=== PATIENT | female | born 1955 | race Caucasian/White ===

== ENCOUNTER 2018-06-28 08:47 | Emergency (ER) | payer BC, OTHER ==
[~2018-06-28] VITALS: Ht 175.3 cm; Wt 115.0 kg
[~2018-06-28 08:47] MED LIST: NALT1TAB14 PO
[2018-06-28 08:50] VITALS: TEMP 36.8; Ht 175.3 cm; Wt 115.0 kg
[2018-06-28] MEDS ORDERED: KETOROLAC TROMETHAMINE 30 MG/ML VIAL IV STA (09:03)
[2018-06-28] MEDS ORDERED: SODIUM CHLORIDE 0.9% 500ML 500 ML IV STA (09:03)
[2018-06-28] MEDS ORDERED: MoRPHine SULFATE 4 MG/ML 1 ML CARP\\VIAL IV STA (09:03)
[2018-06-28] MEDS ORDERED: ONDANSETRON INJ 2 MG/ML 2 ML VIAL IV STA (09:03)
[2018-06-28 09:30] LABS: BASO % 0.5 %; BASO ABS # 0.04 K/uL (0-0.2); EOS % 2.6 %; EOS ABS # 0.23 K/uL (0-0.5); HEMATOCRIT 43.9 % (37-47); IG# 0.06 K/uL (0.00-0.02); LYMPH % 31.9 %; LYMPH ABS # 2.77 K/uL (1.2-3.4); MEAN CELL VOLUME 92.8 fL (80-100); MEAN CORPUSCULAR HEMOGLOBIN 31.7 pg (25-34); MEAN CORPUSCULAR HGB CONC 34.2 g/dl (32-36); MEAN PLATELET VOLUME 9.3 fL (7.4-10.4); MONO % 7.4 %; MONO ABS # 0.64 K/uL (0.11-0.59); NEUT % 56.9 %; NEUT ABS # 4.94 K/uL (1.4-6.5); PLATELET COUNT 346 K/uL (130-400); RED CELL DISTRIBUTION WIDTH CV 13.2 % (11.5-14.5); WHITE BLOOD COUNT 8.68 K/uL (4.8-10.8)
[2018-06-28 09:40] LABS: CALCIUM 9.2 mg/dl (8.5-10.1); CREATININE 0.9 mg/dl (0.60-1.20)
--- NOTE | 2018-06-28 10:11 | DIAGNOSTIC IMAGING REPORT ---
L-SPINE MIN 4 VIEWS ROUTINE HISTORY: 63 years-old Female LBP acute on chronic low back pain without reported trauma. COMPARISON: None available TECHNIQUE: 5 views of the lumbar spine FINDINGS: There are 5 nonrib-bearing lumbar type vertebral segments present. No spondylolysis or spondylolisthesis. Moderate intervertebral disc space narrowing with spondylitic spurring at L5-S1. At least mild facet arthrosis is seen at L4-L5 and L5-S1. No acute fracture or subluxation. Surgical clips of the right upper quadrant abdomen suggest prior cholecystectomy. Clips of the pelvis suggest prior tubo-ovarian occlusion. Pelvic basin calcifications suggest probable phleboliths. IMPRESSION: 1. No acute fracture or subluxation. 2. Moderate intervertebral disc space narrowing at L5-S1 with spondylitic spurring and facet arthrosis. The above report was generated using voice recognition software. It may contain grammatical, syntax or spelling errors. Electronically signed by: Miguel Nunes M.D. 06/28/2018 10:10 AM Dictated Date/Time: 06/28/2018 10:08 AM
[2018-06-28] MEDS ORDERED: WLLXL300 PO (10:40)
[2018-06-28] MEDS ORDERED: OXYC-90 PO (11:38)
[2018-06-28 12:10] VITALS: BP 136/79; PULSE 78; O2SAT 94
--- NOTE | 2018-06-28 12:24 | EMERGENCY ROOM VISIT NOTE ---
History First contact with patient: 08:55 Chief Complaint: BACK PAIN Stated Complaint: SEVERE BACK PAIN History of Present Illness The patient is a 63 year old female who presents to the Emergency Room with complaints of severe lower back pain since . The patient reports that she has been taking Flexeril and ibuprofen without relief. She does have a history of back issues and fibromyalgia. The patient reports that she did some fallon last Wednesday, and did have some mild worsening discomfort at that time. The pain has progressively worsened throughout last week. She reports a history of herniated disks and sacral fracture. She currently denies any pain extending into the buttocks or down the legs. She also denies any bladder/ bowel incontinence, saddle anesthesias or lower extremity weakness. She rates her discomfort a 9 out of 10. Review of Systems HEENT: Denies dizziness, visual problems, hearing loss, tinnitus. Denies difficulty swallowing or oral lesions. PULMONARY: Denies cough, shortness of breath, sputum production or hemoptysis. CARDIOVASCULAR: Denies chest pain, palpitations, dyspnea on exertion, orthopnea or peripheral edema. GASTROINTESTINAL: Denies diarrhea, constipation, nausea, vomiting, or abdominal pain. GENITOURINARY: Denies dysuria, frequency, urgency or nocturia. NEUROLOGIC: Denies history of epilepsy, CVA, TIA or chronic headaches. MUSCULOSKELETAL: History of fibromyalgia. SKIN: Denies rashes or lesions. PSYCHIATRIC: Denies history of depression or mental illness. ENDOCRINE: Denies history of diabetes or thyroid disorders. Past Medical/Surgical History Medical Problems: (1) Fibromyalgia (2) History of renal stone (3) HTN (hypertension) Surgical Problems: (1) Hx of cholecystectomy Family History Cancer Gallbladder disease Kidney disease Kidney stones Social History Smoking Status: Former Smoker Alcohol Use: occasionally Marital Status: Housing Status: lives with significant other Occupation Status: employed Current/Historical Medications Scheduled Bupropion HCl (Bupropion HCl Xl), 300 MG PO QAM Scheduled PRN Oxycodone Ir (Roxicodone Ir), 1 TAB PO Q4H PRN for Pain Physical Exam Vital Signs Date Time Temp Pulse Resp B/P (MAP) Pulse Ox O2 Delivery O2 Flow Rate FiO2 06/28/18 12:10 78 14 136/79 94 06/28/18 10:25 57 20 152/88 99 Room Air 06/28/18 08:50 36.8 86 20 192/110 97 Room Air Physical Exam CONSTITUTIONAL: Healthy and well nourished. Alert and oriented X 3 with positive affect. Patient appears in severe discomfort and is crying. HEENT: Normocephalic, atraumatic. Pupils equal, round and reactive. No scleral icterus or conjunctival injection/pallor. NECK: Full active range of motion without discomfort. No nuchal rigidity. RESPIRATORY: Clear to auscultation bilaterally with no wheezing, crackles, rhonchi or stridor. CARDIOVASCULAR: Regular rate and rhythm with no murmurs, rubs or gallops. GASTROINTESTINAL: Bowel sounds present in all quadrants. Abdomen is soft and nontender to palpation. MUSCULOSKELETAL: Examination shows generalized tenderness to palpation of the lower lumbar region and bilateral SI joints. The patient was standing on initial exam. After the patient received parenteral analgesics, further exam shows negative logroll and straight leg raise bilaterally. Pedal pulses are intact. Ankle plantar/dorsiflexion strength is 4 out of 5 and symmetric bilaterally. INTEGUMENTARY: No rash or other significant dermatologic conditions noted. NEUROLOGIC: No focal neurologic deficits noted. Lower extremities are sensory intact. Medical Decision & Procedures ER Provider Diagnostic Interpretation: My interpretation of lumbar spine x-rays shows degenerative changes at L5-S1, otherwise no other acute fractures noted. Radiologist report is as follows: L-SPINE MIN 4 VIEWS ROUTINE HISTORY: 63 years-old Female LBP acute on chronic low back pain without reported trauma. COMPARISON: None available TECHNIQUE: 5 views of the lumbar spine FINDINGS: There are 5 nonrib-bearing lumbar type vertebral segments present. No spondylolysis or spondylolisthesis. Moderate intervertebral disc space narrowing with spondylitic spurring at L5-S1. At least mild facet arthrosis is seen at L4-L5 and L5-S1. No acute fracture or subluxation. Surgical clips of the right upper quadrant abdomen suggest prior cholecystectomy. Clips of the pelvis suggest prior tubo-ovarian occlusion. Pelvic basin calcifications suggest probable phleboliths. IMPRESSION: 1. No acute fracture or subluxation. 2. Moderate intervertebral disc space narrowing at L5-S1 with spondylitic spurring and facet arthrosis. Laboratory Results 06/28/18 09:10 Red Blood Count 4.73, Mean Corpuscular Volume 92.8, Mean Corpuscular Hemoglobin 31.7, Mean Corpuscular Hemoglobin Concent 34.2, Mean Platelet Volume 9.3, Neutrophils (%) (Auto) 56.9, Lymphocytes (%) (Auto) 31.9, Monocytes (%) (Auto) 7.4, Eosinophils (%) (Auto) 2.6, Basophils (%) (Auto) 0.5, Neutrophils # (Auto) 4.94, Lymphocytes # (Auto) 2.77, Monocytes # (Auto) 0.64, Eosinophils # (Auto) 0.23, Basophils # (Auto) 0.04 06/28/18 09:10 Test 06/28/18 09:10 White Blood Count 8.68 K/uL (4.8-10.8) Red Blood Count 4.73 M/uL (4.2-5.4) Hemoglobin 15.0 g/dL (12.0-16.0) Hematocrit 43.9 % (37-47) Mean Corpuscular Volume 92.8 fL (80-100) Mean Corpuscular Hemoglobin 31.7 pg (25-34) Mean Corpuscular Hemoglobin Concent 34.2 g/dl (32-36) Platelet Count 346 K/uL (130-400) Mean Platelet Volume 9.3 fL (7.4-10.4) Neutrophils (%) (Auto) 56.9 % Lymphocytes (%) (Auto) 31.9 % Monocytes (%) (Auto) 7.4 % Eosinophils (%) (Auto) 2.6 % Basophils (%) (Auto) 0.5 % Neutrophils # (Auto) 4.94 K/uL (1.4-6.5) Lymphocytes # (Auto) 2.77 K/uL (1.2-3.4) Monocytes # (Auto) 0.64 K/uL (0.11-0.59) Eosinophils # (Auto) 0.23 K/uL (0-0.5) Basophils # (Auto) 0.04 K/uL (0-0.2) RDW Standard Deviation 45.0 fL (36.4-46.3) RDW Coefficient of Variation 13.2 % (11.5-14.5) Immature Granulocyte % (Auto) 0.7 % Immature Granulocyte # (Auto) 0.06 K/uL (0.00-0.02) Erythrocyte Sedimentation Rate 39 mm/hr (0-21) Anion Gap 9.0 mmol/L (3-11) Est Creatinine Clear Calc Drug Dose 88.8 ml/min Estimated GFR () 80.0 Estimated GFR (Non- 69.0 BUN/Creatinine Ratio 14.5 (10-20) Calcium Level 9.2 mg/dl (8.5-10.1) C-Reactive Protein 0.66 mg/dl (0-0.29) Lyme Disease IgG Antibody NEG (NEG) Lyme Disease IgM Antibody NEG (NEG) The above labs were reviewed. Sed rate and CRP are mildly elevated, otherwise no other leukocytosis noted. Lyme screen is negative. Medications Administered Medications (Trade) Dose Ordered Sig/Teena Route Start Time Stop Time Status Last Admin Dose Admin Ketorolac Tromethamine (Toradol Inj) 30 mg NOW STAT IV 06/28/18 09:03 06/28/18 09:06 DC 06/28/18 09:20 30 MG Morphine Sulfate (MoRPHine SULFATE INJ) 4 mg NOW STAT IV 06/28/18 09:03 06/28/18 09:06 DC 06/28/18 09:23 4 MG Ondansetron HCl (Zofran Inj) 4 mg NOW STAT IV 06/28/18 09:03 06/28/18 09:06 DC 06/28/18 09:21 4 MG Sodium Chloride 500 ml @ 999 mls/hr Q31M STAT IV 06/28/18 09:03 06/28/18 09:33 DC 06/28/18 09:22 999 MLS/HR Procedure 1. IV medications: Morphine 4 mg, Toradol 30 mg and Zofran 4 mg IVP 2. IV hydration: The patient was administered a normal saline 500 cc bolus ED Course Patient history and physical exam were performed. Nurse's notes were reviewed. Vital signs were reviewed, showing a blood pressure of 192/110. IV access was established, and labs were drawn. The patient was administered a normal saline 500 cc bolus, and IV analgesics/antiemetics as discussed in the previous Procedure section. After the patient received some comfort x-rays of the lumbar spine were performed, showing degenerative changes at L5-S1, otherwise no other acute fractures or compression deformities noted. On reexamination, the patient reported significant pain relief, rating her pain a 2 out of 10. She was able to ambulate to the bathroom without significant discomfort. The patient will be provided a prescription for OxyIR 5 mg. She was provided an educational handout, and encouraged to avoid heavy lifting, standing or sitting for long periods of time. She was encouraged alternate ibuprofen and Tylenol for baseline pain relief. The patient was encouraged to follow-up with her PCP if symptoms are not significantly improving within the next 2-3 days. She is welcome to return to the emergency department for any uncontrollable pain or other concerning symptoms. I did discuss symptoms associated with cauda equina syndrome, and urgent return to the emergency department as needed. The patient was happy with plan of care, voiced understanding of all discharge instructions , and discharged with her . It is noted that the patient's blood pressure was elevated on initial examination, but her pressure did improve throughout her ED stay, and was normal at the time of discharge. Medical Decision See previous section. Physical exam findings are not consistent with cauda equina syndrome. Her pain is reproducible with palpation and movement, therefore I suspect musculoskeletal etiology. I do not suspect spinal abscess or hematoma given no history of recent illness, infection, fever or traumatic injuries. [place] Drug Monitoring Program Search Results: patient reviewed within database, no issues identified Medication Reconcilliation Current Medication List: was personally reviewed by me Blood Pressure Screening Patient's blood pressure: Elevated blood pressure Blood pressure disposition: Elevated BP felt to be situational Impression Primary Impression: Lumbar pain Departure Information Prescriptions Oxycodone Ir (Roxicodone Ir) 5 Mg Tab 1 TAB PO Q4H Y for Pain, #15 TAB For Initial Treatment Prov: Jerry Man PA 06/28/18 Referrals Diane Alfonso M.D. (PCP) Patient Instructions [facility]
== END 2018-06-28 12:12 | disposition home or self-care (01) ==
LOC: C.EDB 08:48
DX: M54.5 Low back pain (principal); M79.7 Fibromyalgia; I10 Essential (primary) hypertension; Z87.891 Personal history of nicotine dependence; M51.37 Other intervertebral disc degeneration, lumbosacral region